=== PATIENT | female | born 1990 | race African-American/Black ===

== ENCOUNTER 2019-02-18 19:15 | Emergency (ER) | payer SELFPAY ==
[~2019-02-18] VITALS: Ht 180.3 cm; Wt 117.9 kg
[2019-02-18 19:29] VITALS: BP 128/74
[2019-02-18] MEDS ORDERED: methylPREDNISolone SOD SUCC 125 MG/2 ML VL IM ONE (21:45)
[2019-02-18] MEDS ORDERED: KETOROLAC TROMETH 60MG/2ML VIAL IM ONE (21:45)
== END 2019-02-18 23:03 | disposition home or self-care (01) ==
LOC: ER 19:15
DX: M51.06 Intervertebral disc disorders with myelopathy, lumbar region (principal); X58.XXXA Exposure to other specified factors, initial encounter; Y93.89 Activity, other specified; Y92.69 Other specified industrial and construction area as the place of occurrence of the external cause; Y99.8 Other external cause status
CPT/HCPCS: 72131; 96372; 99284; J1885; J2930

== ENCOUNTER 2021-02-21 13:25 | Emergency (ER) | payer MEDICAID ==
[~2021-02-21] VITALS: Ht 180.3 cm; Wt 138.3 kg
[2021-02-21 14:23] VITALS: BP 103/64
== END 2021-02-21 16:11 | disposition home or self-care (01) ==
LOC: ER 13:25
DX: S86.912A Strain of unspecified muscle(s) and tendon(s) at lower leg level, left leg, initial encounter (principal); X58.XXXA Exposure to other specified factors, initial encounter; Y93.89 Activity, other specified; Y92.89 Other specified places as the place of occurrence of the external cause; Y99.8 Other external cause status
CPT/HCPCS: 93971